=== PATIENT | male | born 1955 | race Two or more races ===

== ENCOUNTER 2022-01-06 08:59 | Outpatient (CLI) | payer OTHER | END 2022-01-06 09:13 | disposition home or self-care (01) | LOC: TOM 08:59 | PROVIDERS: ATTEND Urology | DX: R97.20 Elevated prostate specific antigen [PSA] (principal); N20.0 Calculus of kidney ==

== ENCOUNTER 2022-02-24 13:46 | Outpatient (CLI) | payer OTHER | END 2022-02-24 13:54 | disposition home or self-care (01) | LOC: RAD 13:46 | PROVIDERS: ATTEND Urology | DX: I11.9 Hypertensive heart disease without heart failure (principal) ==

== ENCOUNTER 2022-02-24 14:32 | Outpatient (CLI) | payer OTHER | END 2022-02-24 14:38 | disposition home or self-care (01) | LOC: EKG 14:32 | PROVIDERS: ATTEND Urology | DX: I10 Essential (primary) hypertension (principal) ==

== ENCOUNTER 2022-02-25 07:20 | Outpatient (CLI) | payer OTHER | END 2022-02-25 07:21 | disposition home or self-care (01) | LOC: LAB 07:20 | PROVIDERS: ATTEND Urology | DX: I11.9 Hypertensive heart disease without heart failure (principal); N20.0 Calculus of kidney; N20.1 Calculus of ureter ==

== ENCOUNTER 2022-03-08 05:40 | Day surgery (SDC) | payer OTHER ==
[~2022-03-08] VITALS: Ht 160 cm; Wt 45.4 kg
[~2022-03-08 05:40] MED LIST: DOLOGESIC 500-1 EACH PO; ZESTRIL10 M1 PO
== END 2022-03-08 18:15 | disposition home or self-care (01) ==
LOC: CIR.AMB 05:40
PROVIDERS: ATTEND Urology
DX: N20.2 Calculus of kidney with calculus of ureter (principal); Z20.822 Contact with and (suspected) exposure to COVID-19; Z88.6 Allergy status to analgesic agent; I10 Essential (primary) hypertension; M06.9 Rheumatoid arthritis, unspecified

== ENCOUNTER 2022-03-11 10:56 | Outpatient (CLI) | payer OTHER | END 2022-03-11 11:03 | disposition home or self-care (01) | LOC: RAD 10:56 | PROVIDERS: ATTEND Urology | DX: N20.1 Calculus of ureter (principal) ==

== ENCOUNTER 2022-04-05 09:53 | Outpatient (CLI) | payer OTHER | END 2022-04-05 09:59 | disposition home or self-care (01) | LOC: LAB 09:53 | PROVIDERS: ATTEND Urology | DX: I11.9 Hypertensive heart disease without heart failure (principal); N30.00 Acute cystitis without hematuria ==

== ENCOUNTER 2022-07-31 08:54 | Outpatient (CLI) | payer OTHER | END 2022-07-31 08:55 | disposition home or self-care (01) | LOC: LAB 08:54 | PROVIDERS: ATTEND Urology | DX: I11.9 Hypertensive heart disease without heart failure (principal) ==

== ENCOUNTER 2022-08-16 06:26 | Day surgery (SDC) | payer OTHER ==
[~2022-08-16] VITALS: Ht 157.5 cm; Wt 46.7 kg
== END 2022-08-16 18:30 | disposition home or self-care (01) ==
LOC: CIR.AMB 06:26
PROVIDERS: ATTEND Urology
DX: N20.1 Calculus of ureter (principal); Z88.0 Allergy status to penicillin; Z88.6 Allergy status to analgesic agent; I10 Essential (primary) hypertension

== ENCOUNTER 2022-08-24 10:07 | Outpatient (CLI) | payer OTHER | END 2022-08-24 10:13 | disposition home or self-care (01) | LOC: RAD 10:07 | PROVIDERS: ATTEND Urology | DX: N20.0 Calculus of kidney (principal) ==

== ENCOUNTER 2022-10-07 08:56 | Outpatient (CLI) | payer OTHER | END 2022-10-07 08:58 | disposition home or self-care (01) | LOC: LAB 08:56 | PROVIDERS: ATTEND Urology | DX: N20.1 Calculus of ureter (principal) ==

== ENCOUNTER 2023-03-01 08:46 | Outpatient (CLI) | payer OTHER | END 2023-03-01 08:51 | disposition home or self-care (01) | LOC: LAB 08:46 | PROVIDERS: ATTEND Urology | DX: N20.1 Calculus of ureter (principal); N20.0 Calculus of kidney ==

== ENCOUNTER 2023-06-13 09:24 | Outpatient (CLI) | payer OTHER | END 2023-06-13 09:32 | disposition home or self-care (01) | LOC: RAD 09:24 | PROVIDERS: ATTEND Urology | DX: N20.0 Calculus of kidney (principal); Z88.0 Allergy status to penicillin; Z88.6 Allergy status to analgesic agent ==

== ENCOUNTER → 2023-07-02 09:34 | Outpatient (CLI) | payer OTHER | END | disposition home or self-care (01) | LOC: LAB 09:34 | PROVIDERS: ATTEND Urology | DX: N20.1 Calculus of ureter (principal); N20.0 Calculus of kidney ==

== ENCOUNTER → 2024-04-21 08:46 | Outpatient (CLI) | payer OTHER ==
[2024-04-23 15:06] LABS: Citra 24 hr 24 mg/L (Undefined); cit 62 mg/24 hr (320-1240)
== END | disposition home or self-care (01) ==
LOC: LAB 08:46
PROVIDERS: ATTEND Urology
DX: N20.0 Calculus of kidney (principal)

== ENCOUNTER 2024-09-26 08:41 | Outpatient (CLI) | payer OTHER ==
[2024-09-26 09:30] LABS: PH,URINE 5.5 (5.0-8.0); URINE APPEARANCE Clear; URINE BILIRRUBIN Negative (NEGATIVE); URINE BLOOD Negative; URINE COLOR Yellow; URINE GLUCOSE Negative (NEGATIVE); URINE KETONE Negative (NEGATIVE); URINE LEUKOCYTE Negative; URINE NITRATE Negative; URINE PROTEIN Trace (NEGATIVE); URINE UROBILINOGEN 0.2 E.U./dl
[2024-09-26 09:31] LABS: URINE BACTERIA 23.2 uL (0.0-1933); URINE EPITHELIAL CELLS 4.5 uL (0.0-38.8); URINE RBC 10.4 uL (0.0-20.8); URINE WBC 2.9 uL (0.0-23.2)
[2024-09-26 10:06] LABS: URINE CAST 0.29 uL (0.0-1.40)
== END 2024-09-26 08:42 | disposition home or self-care (01) ==
LOC: LAB 08:41
PROVIDERS: ATTEND Urology
DX: N20.0 Calculus of kidney (principal)

== ENCOUNTER 2024-09-29 08:41 | Outpatient (CLI) | payer OTHER | END 2024-09-29 11:52 | disposition home or self-care (01) | LOC: LAB 08:41 | PROVIDERS: ATTEND Urology | DX: N20.0 Calculus of kidney (principal) ==

== ENCOUNTER 2024-12-24 07:55 | Emergency (ER) | payer OTHER ==
[~2024-12-24] VITALS: Ht 160 cm; Wt 47.6 kg
[2024-12-24 08:01] VITALS: BP 170/80; O2SAT 99
[2024-12-24] MEDS ORDERED: TAMSULOSIN HCL 0.4 MG CAP PO ONE ×2 (08:42→08:45)
[2024-12-24] MEDS ORDERED: CIPROFLOXACIN IN 5 % DEXTROSE 400 MG/200 ML PIGGYBAG IV ONE ×2 (08:43→08:45)
[2024-12-24] MEDS ORDERED: ONDANSETRON HCL 2 MG/ML VIAL ONE (08:43)
[2024-12-24] MEDS ORDERED: FAMOTIDINE/PF 20 MG/2 ML VIAL ONE (08:43)
[2024-12-24] MEDS ORDERED: ORPHENADRINE CITRATE 30 MG/ML AMPUL ONE (08:43)
[2024-12-24] MEDS ORDERED: FAMOtidine 10 MG/ML (4ML VIAL) IV ONE (08:45)
[2024-12-24] MEDS ORDERED: ONDANSETRON HCL 2 MG/ML VIAL IV ONE (08:45)
[2024-12-24] MEDS ORDERED: 0.9 % SODIUM CHLORIDE 1,000 ML IV ONE (08:45)
[2024-12-24] MEDS ORDERED: ORPHENADRINE CITRATE 30 MG/ML AMPUL IM ONE (08:45)
[2024-12-24 09:42] LABS: BASO % 0.2 % (0.1-1.2); EOS # 0.01 (0.04-0.54); EOS % 0.1 % (0.7-7.0); HEMATOCRIT 42.4 % (40.1-51.0); HEMOGLOBIN 13.2 g/dL (13.7-17.5); LYMPH # 1.24 (1.18-3.74); LYMPH % 7.2 % (19.3-53.1); MEAN CORPUSCULAR HEMOGLOBIN 27.7 pg (25.6-32.2); MONO # 1.58 (0.24-0.82); MONO % 9.2 % (4.7-12.5); NEUT # 14.24 (1.56-6.13); NEUT % 82.6 % (34.0-71.1); PLATELET COUNT 303 K/uL (163-369); RED BLOOD COUNT 4.76 M/uL (4.63-6.08); RED CELL DISTRIBUTION WIDTH 14.4 % (11.6-14.4)
[2024-12-24 09:52] LABS: PH,URINE 5.5 (5.0-8.0); URINE APPEARANCE Clear; URINE BILIRRUBIN Negative (NEGATIVE); URINE BLOOD Small; URINE COLOR Yellow; URINE GLUCOSE Negative (NEGATIVE); URINE KETONE Negative (NEGATIVE); URINE LEUKOCYTE Negative; URINE NITRATE Negative; URINE PROTEIN 30 (NEGATIVE); URINE UROBILINOGEN 0.2 E.U./dl
[2024-12-24 09:54] LABS: URINE BACTERIA 97.9 uL (0.0-1933); URINE EPITHELIAL CELLS 7.1 uL (0.0-38.8); URINE RBC 32.7 uL (0.0-20.8); URINE WBC 10.6 uL (0.0-23.2)
[2024-12-24 09:57] LABS: ALBUMIN 3.5 gm/dL (3.4-5.0); BILIRUBIN TOTAL 0.56 mg/dL (0.3-1.2); CALCIUM 8.9 mg/dL (8.5-10.1); CREATININE SERUM 1.21 mg/dL (0.70-1.30); GFR 59.63; GLOBULINA 4.2 G/DL (2.4-3.5); POTASSIUM 4.11 mEq/L (3.5-5.1); TOTAL PROTEIN 7.7 gm/dL (6.4-8.2)
[2024-12-24 10:06] LABS: INR 0.94; PARTIAL THROMBOPLASTIN TIME 31.4 SECONDS (22.0-34.0); PROTHROMBIN TIME 10.3 SECONDS (9.0-11.5)
[2024-12-24 10:16] LABS: URINE CAST 0.58 uL (0.0-1.40)
[2024-12-24] MEDS ORDERED: NORFLEX100MG PO (11:45)
[2024-12-24] MEDS ORDERED: BACTRIM DS TAB1 EACH PO (11:45)
[2024-12-24] MEDS ORDERED: PEPCID AC20 MG PO (11:45)
[2024-12-24] MEDS ORDERED: TAMS0.4C PO (11:45)
== END 2024-12-24 13:55 | disposition home or self-care (01) ==
LOC: ER 07:55
PROVIDERS: General Practice
DX: R10.31 Right lower quadrant pain (principal); N20.2 Calculus of kidney with calculus of ureter; K57.30 Diverticulosis of large intestine without perforation or abscess without bleeding; K44.9 Diaphragmatic hernia without obstruction or gangrene; I10 Essential (primary) hypertension; Z88.6 Allergy status to analgesic agent; Z88.0 Allergy status to penicillin
CPT/HCPCS: 36415; 71045; 74176; 96365; 96372; 99284; J0744; J2405; J3490